=== PATIENT | female | born 1985 | race Caucasian/White ===

== ENCOUNTER 2017-08-14 10:45 | Inpatient (IN) | payer OTHER ==
[~2017-08-14] VITALS: Ht 157.5 cm; Wt 84.8 kg
[~2017-08-14 10:45] MED LIST: CITRIC ACID/SODIUM CITRATE 30 ML SOLUTION UDCUP PO ONE; METOCLOPRAMIDE HCL 5 MG/ML 2 ML VIAL IVP ONE; RINGERS SOLUTION,LACTATED 1,000 ML IV ONE
[2017-08-14] MEDS ORDERED: MIDAZOLAM HCL 2 MG/2 ML VIAL ONE (11:09)
[2017-08-14] MEDS ORDERED: MORPHINE SULFATE/PF 0.5 MG/ML 10 ML AMP ONE (11:09)
[2017-08-14] MEDS ORDERED: FentaNYL CITRATE-PF 100 MCG/2 ML VIAL ONE (11:10)
[2017-08-14 11:13] VITALS: BP 139/81
[2017-08-14 11:29] LABS: BASOPHILS % (AUTO) 0.4 % (0.0-2.0); EOSINOPHILS % (AUTO) 0.5 % (1.0-6.0); HEMOGLOBIN 13.9 g/dL (12.0-16.0); LYMPHOCYTES # (AUTO) 1.8 K/uL (1.0-4.8); LYMPHOCYTES % (AUTO) 21.4 % (22.0-44.0); MEAN CORPUSCULAR HEMOGLOBIN 31.8 pg (26.0-34.0); MEAN CORPUSCULAR HGB CONC 34.7 G/dL (31.0-37.0); MEAN CORPUSCULAR VOLUME 92 fL (80-100); MONOCYTES # (AUTO) 0.6 K/uL (0.1-1.0); MONOCYTES % (AUTO) 7.4 % (2.0-9.0); NEUTROPHILS # (AUTO) 5.9 K/uL (1.8-7.7); NEUTROPHILS % (AUTO) 70.3 % (40.0-70.0); PLATELET COUNT (AUTO) 215 K/uL (150-450); RED BLOOD CELL COUNT(AUTO) 4.35 MIL/uL (4.00-5.20); WHITE BLOOD COUNT (AUTO) 8.4 K/uL (4.5-11.0)
[2017-08-14] MEDS ORDERED: DEXAMETHASONE SOD PHOS 4 MG/ML VIAL IVP ONE (12:00)
[2017-08-14] MEDS ORDERED: EPHEDrine SULFATE 50 MG/ML VIAL IM ONE (12:00)
[2017-08-14] MEDS ORDERED: OXYTOCIN 10 UNITS/ML VIAL IM ONE (12:00)
[2017-08-14] MEDS ORDERED: ONDANSETRON HCL 4 MG/2 ML VIAL IVP ONE (12:00)
[2017-08-14] MEDS ORDERED: MORPHINE SULFATE 4 MG/ML SYRINGE IVP PRN (12:45)
[2017-08-14] MEDS ORDERED: ONDANSETRON HCL 4 MG/2 ML VIAL IVP PRN ×2 (12:45)
[2017-08-14] MEDS ORDERED: OXYGEN THERAPY IH SCH ×2 (12:45)
[2017-08-14] MEDS ORDERED: FentaNYL CITRATE-PF 100 MCG/2 ML VIAL IVP PRN ×2 (12:45)
[2017-08-14] MEDS ORDERED: DiphenhydrAMINE HCL 50 MG/ML VIAL IVP PRN ×2 (12:45)
[2017-08-14] MEDS ORDERED: MORPHINE SULFATE 2 MG/ML SYRINGE IVP PRN (12:45)
[2017-08-14] MEDS ORDERED: ACETAMINOPHEN 1000 MG/ISO-OSM 100 ML IV ONE (12:57)
[2017-08-14] MEDS ORDERED: ACETAMINOPHEN/CODEINE 300-30 MG TABLET PO PRN ×2 (13:00)
[2017-08-14] MEDS ORDERED: LANOLIN 7 GM OINTMENT TP PRN (13:00)
[2017-08-14] MEDS: ACETAMINOPHEN 1000 MG/ISO-OSM 100 ML IV SCH ×2 (13:25→21:35)
[2017-08-14] MEDS: DEXTROSE 5%-0.45% SODIUM CHL 1,000 ML IV SCH ×2 (15:46→20:19)
[2017-08-14] MEDS: NALBUPHINE HCL 10 MG/ML VIAL IVP SCH ×2 (15:47→22:07)
[2017-08-15] MEDS: DEXTROSE 5%-0.45% SODIUM CHL 1,000 ML IV SCH ×2 (01:56→05:47)
[2017-08-15] MEDS: NALBUPHINE HCL 10 MG/ML VIAL IVP SCH (04:00)
[2017-08-15] MEDS: ACETAMINOPHEN 1000 MG/ISO-OSM 100 ML IV SCH (05:47)
[2017-08-15] MEDS: MAGNESIUM HYDROXIDE SUSPENSION 30 ML UDCUP PO SCH ×2 (08:05→20:47)
[2017-08-15] MEDS: IBUPROFEN 800 MG TABLET PO SCH ×3 (08:05→20:48)
[2017-08-16] MEDS: IBUPROFEN 800 MG TABLET PO SCH ×4 (02:49→21:44)
[2017-08-16] MEDS: MAGNESIUM HYDROXIDE SUSPENSION 30 ML UDCUP PO SCH ×2 (08:20→21:43)
[2017-08-17] MEDS: IBUPROFEN 800 MG TABLET PO SCH ×2 (03:19→08:45)
[2017-08-17] MEDS: MAGNESIUM HYDROXIDE SUSPENSION 30 ML UDCUP PO SCH (08:28)
[2017-08-17] MEDS ORDERED: IBUP-2071 PO (11:03)
== END 2017-08-17 12:10 | disposition home or self-care (01) | DRG 766 ==
LOC: OBSVTOIN 10:45 → 4S 10:45
PROVIDERS: ADMIT Obstetrics & Gynecology; ATTEND Obstetrics & Gynecology
PROC: 10D00Z1 Extraction of Products of Conception, Low, Open Approach (ICD-10-PCS; principal; 2017-08-14)
DX: O34.211 Maternal care for low transverse scar from previous cesarean delivery (principal); E66.3 Overweight; Z37.0 Single live birth; Z3A.39 39 weeks gestation of pregnancy; O75.89 Other specified complications of labor and delivery; Z68.34 Body mass index [BMI] 34.0-34.9, adult
CPT/HCPCS: 86850; 86900; 86901; 87081; J0131; J0690; J1100; J2250; J2274; J2300; J2405; J2590; J2765; J3010; J3490; J7120